=== PATIENT | female | born 1960 | race African-American/Black ===

== ENCOUNTER → 2017-05-12 | Outpatient (CLI) | payer BC ==
--- NOTE | ~2017-05-12 | MY29 ---
[facility] A Service of [facility] RADIOLOGY TEXT RESULTS PATIENT: BERONICA PALOMINO LOCATION: [facility] : 58 UNIT #: [id number] AGE: [address]: GERI GRANT MD SEX: F ORDER DR: [id number] [facility] [address] [place], [place] [address] [id number] O MR#: [id number] Acc #: [id number] NAME: BERONICA PALOMINO : 1960 SEX: F STUDY DATE/TIME: 05/12/2017 15:35 UNIT: [facility] ROOM: STUDY DESCRIPTION: MY HOWARD SCREENING W/ CAD BILAT Attending Physician: Geri Grant M.D. Referring Physician: Geri Grant M.D. Ordering Physician: Staff Doctor Not On Primary Care Physician: Geri Grant M.D. MEDICAL IMAGING REPORT This report is preliminary unless electronic signature is present EXAM Digital screening mammogram, 05/12/2017, [facility]. HISTORY 57-year-old woman, no risk elevation. Annual screen. COMPARISON Mammograms date to 04/07/2011, with most recent 05/05/2016. FINDINGS Digital imaging of each breast was completed utilizing a two-view examination of each breast in craniocaudal and mediolateral-oblique projections. Review and interpretation of digital mammograms include a second review in conjunction with FDA-approved CAD device. There is a normal parenchymal presentation bilaterally consistent with the patient's age. There are no breast masses imaged and no parenchymal asymmetry is visualized. There are no suspicious microcalcifications and I see no focal architectural disturbance. IMPRESSION Negative screening digital mammogram. One-year followup recommended. Patients over the age of 40 are entered into a reminder system with target due date for the next mammogram. A result letter will also be sent to the patient. BIRADS: 1 Negative. Dictated by... Reynaldo Chapman M.D. [facility] A Service [facility] RADIOLOGY TEXT RESULTS PATIENT: BERONICA PALOMINO LOCATION: [facility] : 58 UNIT #: [id number] AGE: [address]: GERI GRANT MD SEX: F ORDER DR: THIS IS AN ELECTRONICALLY VERIFIED REPORT Reynaldo Chapman M.D. at 05/15/2017 7:07 AM Chris TD: 05/12/2017 18:43 JOB #: [id number] MEDICAL IMAGING REPORT Page 1 of 1 COPY
== END | disposition home or self-care (01) ==
LOC: CWCC 15:15
DX: Z12.31 Encounter for screening mammogram for malignant neoplasm of breast (principal)
CPT/HCPCS: G0202